=== PATIENT | male | born 1980 | race Caucasian/White ===

== ENCOUNTER 2018-01-23 11:13 | Emergency (ER) | payer MEDICAID ==
[2018-01-23 11:54] LABS: EOSINOPHILS 0.2 % (0-7); HEMATOCRIT 41.5 % (42.0-54.0); HEMOGLOBIN 14.6 g/dL (13.5-17.5); IMMATURE GRANULOCYTES 0.4 % (0-5); LYMPHOCYTES 41.2 % (15-50); MCH 30.7 pg (26.0-34.0); MCHC 35.2 g/dL (31.0-37.0); MCV 87.4 fL (80.0-100.0); MONOCYTES 4.2 % (2-11); PLATELET COUNT 205 10x3/uL (130-400); RBC 4.75 10x6/uL (4.20-6.10); RDW 13.1 % (11.5-14.5)
[2018-01-23 12:17] LABS: ALBUMIN 3.4 g/dL (3.4-5.0); ANION GAP 11.7 mmol/L (8-16); BILIRUBIN - TOTAL 0.55 mg/dL (0.2-1.3); CALCIUM 8.6 mg/dL (8.5-10.1); CARBON DIOXIDE 27.7 mmol/L (21.0-32.0); CREATININE - SERUM 1.3 mg/dL (0.6-1.3); POTASSIUM - SERUM 3.4 mmol/L (3.5-5.1)
[2018-01-23 12:27] LABS: APPEARANCE CLEAR (CLEAR); BACTERIA FEW /hpf (NONE SEEN); BILIRUBIN NEGATIVE (NEGATIVE); COLOR DK YELLOW (YELLOW); EPITHELIAL CELLS 0-5 /hpf (0-5); GLUCOSE NEGATIVE (NEGATIVE); KETONE NEGATIVE (NEGATIVE); NITRITE NEGATIVE (NEGATIVE); PROTEIN TRACE mg/dL (NEGATIVE); RED CELLS - URINE OCC /hpf (0-5); WHITE CELLS - URINE OCC /hpf (0-5)
[2018-01-23 12:28] LABS: HYALINE CAST RARE /lpf (NONE SEEN); MUCUS >1+ /lpf (NONE SEEN)
[2018-01-23 15:31] LABS: APPEARANCE - CSF CLEAR
[2018-01-23 15:32] LABS: RBC - CSF 69 cmm (0-0)
[2018-01-23 15:48] LABS: GLUCOSE - CSF 67 MG/DL (40-75); PROTEIN - CSF 43 MG/DL (12-60)
== END 2018-01-23 16:48 | disposition home or self-care (01) ==
LOC: D.ER 11:13
PROVIDERS: Emergency Medicine
DX: A93.8 Other specified arthropod-borne viral fevers (principal)

== ENCOUNTER 2018-01-27 13:38 | Emergency (ER) | payer MEDICAID ==
[2018-01-27 16:03] LABS: HEMATOCRIT 38.1 % (42.0-54.0); HEMOGLOBIN 13.3 g/dL (13.5-17.5); MCH 30.4 pg (26.0-34.0); MCHC 34.9 g/dL (31.0-37.0); MCV 87.2 fL (80.0-100.0); MEAN PLATELET VOLUME 10.1 fL (7.4-10.4); RBC 4.37 10x6/uL (4.20-6.10); RDW 13.1 % (11.5-14.5); WBC 12.8 10x3/uL (4.8-10.8)
[2018-01-27 16:04] LABS: PLATELET COUNT 268 10x3/uL (130-400)
[2018-01-27 16:23] LABS: ALBUMIN 3.5 g/dL (3.4-5.0); ALKALINE PHOSPHATASE 104 U/L (46-116); ALT (SGPT) 218 U/L (10-68); BILIRUBIN - TOTAL 0.38 mg/dL (0.2-1.3); CALC OSMOLALITY 285 mosm/kg (275-300); CALCIUM 8.8 mg/dL (8.5-10.1); CARBON DIOXIDE 31.1 mmol/L (21.0-32.0); CHLORIDE - SERUM 106 mmol/L (98-107); CREATININE - SERUM 0.9 mg/dL (0.6-1.3); GLUCOSE 94 mg/dL (74-106); POTASSIUM - SERUM 3.7 mmol/L (3.5-5.1); PROTEIN - SERUM 7.2 g/dL (6.4-8.2); SODIUM 144 mmol/L (136-145); UREA NITROGEN 9 mg/dL (7-18); eGFR NON AFRICAN AMERICAN > 90 mL/min (90-120)
[2018-01-27 16:30] LABS: EOSINOPHILS 1 % (0-7); LYMPHOCYTES 85 % (15-50); NEUTROPHILS 14 % (40-80); PLATELET ESTIMATE NORMAL
[2018-01-29 10:13] LABS: HEPATITIS C ANTIBODY 0.1 (0.0-0.9)
== END 2018-01-27 17:05 | disposition home or self-care (01) ==
LOC: D.ER 13:38
PROVIDERS: Physician Assistant
DX: T14.8XXA Other injury of unspecified body region, initial encounter (principal); Y93.89 Activity, other specified; Y92.89 Other specified places as the place of occurrence of the external cause; R51 Headache; R79.89 Other specified abnormal findings of blood chemistry; F17.200 Nicotine dependence, unspecified, uncomplicated

== ENCOUNTER 2019-06-27 08:53 | Emergency (ER) | payer MEDICAID ==
[~2019-06-27] VITALS: Ht 180.3 cm; Wt 99.1 kg
[2019-06-27 09:12] VITALS: Ht 180.3 cm; Wt 99.1 kg
[2019-06-27] MEDS ORDERED: NAPROSYN500 MG PO (11:20)
[2019-06-27] MEDS ORDERED: HYDROCODONE-A1 UDTA2 PO (11:20)
[2019-06-27] MEDS ORDERED: STERAPRED DS 1010 MG PO (11:20)
[2019-06-27 11:56] VITALS: BP 110/66
== END 2019-06-27 11:57 | disposition home or self-care (01) ==
LOC: D.ER 08:53
DX: M25.511 Pain in right shoulder (principal); M54.12 Radiculopathy, cervical region; F17.210 Nicotine dependence, cigarettes, uncomplicated